=== PATIENT | female | born 2000 | race Caucasian/White ===

== ENCOUNTER 2019-02-17 15:44 | Emergency (ER) | payer MEDICAID ==
[~2019-02-17] VITALS: Ht 160 cm; Wt 70.8 kg
[2019-02-17 16:09] VITALS: BP 129/76
--- NOTE | 2019-02-17 16:55 | NUR ---
PT AMBULATED TO BED 02.
--- NOTE | 2019-02-17 17:07 | NUR ---
R HAND LAC AFTER CUTTING SELF ON GLASS CUP TODAY WHILE WASHING DISHES. DATE OF LAST TETANUS UNKNOWN. PER PT, IT WAS ONE LARGE PIECE OF GLASS THAT CUT HER. BLEEDING CONTROLLED AT THIS TIME. ERMD MADE AWARE OF STATUS. SIDE [id number]. FRIEND AT BEDSIDE. WILL CONTINUE TO MONITOR HX: NONE RX: NONE
[2019-02-17] MEDS ORDERED: LIDOCAINE MPF 1% 10 MG/ML VIAL INJ ONE (17:10)
--- NOTE | 2019-02-17 17:35 | NUR ---
DR BENAVIDES AT BEDSIDE FOR PROCEDURE
--- NOTE | 2019-02-17 18:02 | NUR ---
ERMD AT BEDSIDE EVALUATING PATIENT.
[2019-02-17 18:12] VITALS: BP 122/60
--- NOTE | 2019-02-17 18:12 | NUR ---
Patient discharged with v/s stable. Written and verbal after care instructions given and explained. Patient verbalized understanding. Ambulatory with steady gait. All questions addressed prior to discharge. Advised to follow up with PMD.
== END 2019-02-17 18:12 | disposition home or self-care (01) ==
LOC: MED 15:44
DX: S61.411A Laceration without foreign body of right hand, initial encounter (principal); W25.XXXA Contact with sharp glass, initial encounter; Y93.G1 Activity, food preparation and clean up; Y92.89 Other specified places as the place of occurrence of the external cause; Y99.8 Other external cause status
CPT/HCPCS: 12002; 99283; J2001

== ENCOUNTER 2019-02-22 16:49 | Emergency (ER) | payer MEDICAID ==
[~2019-02-22] VITALS: Ht 165.1 cm; Wt 71.2 kg
[2019-02-22 16:52] VITALS: BP 122/70
[2019-02-22] MEDS ORDERED: KETOROLAC 30 MG/ML VIAL IM ONE (17:10)
[2019-02-22 17:38] VITALS: BP 122/70
== END 2019-02-22 17:36 | disposition home or self-care (01) ==
LOC: MED 16:49
DX: M79.621 Pain in right upper arm (principal); Z48.01 Encounter for change or removal of surgical wound dressing
CPT/HCPCS: 96372; 99283; J1885

== ENCOUNTER 2019-03-10 16:27 | Emergency (ER) | payer MEDICAID ==
[~2019-03-10] VITALS: Ht 160 cm; Wt 72.7 kg
[2019-03-10 16:38] VITALS: BP 118/65
[2019-03-10] MEDS ORDERED: BACITRACIN OINT 500 UNITS/GM PKT TP ONE (17:25)
[2019-03-10 17:56] VITALS: BP 122/60
== END 2019-03-10 17:56 | disposition home or self-care (01) ==
LOC: MED 16:27
DX: S61.412D Laceration without foreign body of left hand, subsequent encounter (principal); X58.XXXD Exposure to other specified factors, subsequent encounter
CPT/HCPCS: 99283